=== PATIENT | female | born 1945 | race Caucasian/White ===

== ENCOUNTER → 2017-05-28 | Outpatient (CLI) | payer MEDICARE, OTHER ==
[2014-11-05 10:18] VITALS: BMI 28.0
[~2017-05-28] MED LIST: ASPI81TA94 PO; CHLOR25 PO; CIPR-214 PO; CLOP75TA43 PO; DOCU-202 PO; ENO100I SC; ESZO2TAB30 PO; HYDR12.556 PO; KRIL500C2 PO; LACT1CAP9 PO; LEV112 PO; LEVO500T83 PO; LOSA100T67 PO; METO25TA93 PO; METR-160 PO; METXR500 PO; MULT-885 PO; NIT4 SL; OMEG100032 PO; PANT20TA27 PO; PER PO; POTA-53 PO; POTA20TA94 PO; ROS10 PO; ROSU5TAB8 PO; TEMA-55 PO; TRAM-420 PO; TURM500C7 PO; UBID30CA27 PO; VALS-25 PO; WAR5 PO
[2017-05-28 12:13] LABS: PLATELET COUNT, AUTOMATED 212 K/uL (150-450)
--- NOTE | 2017-05-28 14:57 | RADIOLOGY IMAGING REPORT ---
FACILITY: [facility] PATIENT NAME: Ban Dubois : 1945 MR: [id number] V: [id number] EXAM DATE: ORDERING PHYSICIAN: DAYTON ORTEGA TECHNOLOGIST: Location: [facility] Patient: Ban Dubois : 1945 Visit/Account:[id number] Date of Sevice: 05/28/2017 ABDOMEN/PELVIS WITH CONTRAST HISTORY: diarrhea, abd pain,bloating x1.5months TECHNIQUE: Following administration of IV contrast contiguous axial images acquired through the abdom en/pelvis. Coronal and sagittal reformatting also performed. Dose Lowering Technique One of the following dose optimization techniques was utilized in the performance of this exam: Autom ated exposure control; adjustment of the mA and/or kV according to the patient's size; or use of an i terative reconstruction technique. Specific details can be referenced in the facility's radiology C T exam operational policy. CONTRAST: 75 mL Isovue-370 COMPARISON: December 19, 2014 FINDINGS: Visualized lung bases: Minimal linear scarring in the lung bases Hepatobiliary: Postsurgical changes from a cholecystectomy. Spleen: Negative. 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 Kidneys ureters or bladder: Tiny cortical hypodensities in both kidneys likely cysts although too sma ll to characterize by CT Genitalia: Pelvic contents are not ideally evaluated due to numerous artifacts from the patient's le ft hip arthroplasty. There appear to be several small calcified uterine fibroids GI: There is focal narrowing in the ascending colon best seen on axial image 80 of series 2 and ju nal image 49 of series series 3 could represent spasm versus an annular lesion. The cecum is now loc ated in the upper abdomen approaching midline. On the prior CT the cecum was in the right side of th e pelvis suggesting a mobile cecum. There is diverticulosis of the sigmoid colon. There appears to be wall thickening seen throughout th e distal sigmoid colon suggesting possible acute diverticulitis. There is a large diverticulum projecting from the third portion of the duodenum Vessels/spaces/nodes: There are at least moderate vascular calcifications throughout the abdomen and pelvis. Bones/soft tissues: There Is a left hip arthroplasty. There are spondylotic changes of the lower lum bar spine similar to the prior examination Additional findings: None pertinent. IMPRESSION: The cecum is now located in the upper abdomen approaching midline as opposed to the prior CT where th e cecum was in the right-sided the pelvis. This finding suggests some mobile cecum There is extensive diverticulosis in the sigmoid colon and wall thickening seen throughout the distal sigmoid colon suggesting possible acute diverticulitis. Clinical follow-up needed There is a focal narrowing in the descending colon as described above which could represent spasm christina raj an annular lesion Additional chronic findings as described above Report Dictated By: Andreia Campoverde MD at 05/28/2017 2:39 PM Report E-Signed By: Andreia Campoverde MD at 05/28/2017 2:52 PM WSN:[email or web address]
== END ==
LOC: LAB 11:44
PROVIDERS: ATTEND Nurse Practitioner Family
DX: K57.32 Diverticulitis of large intestine without perforation or abscess without bleeding (principal); Z96.642 Presence of left artificial hip joint; I25.799 Atherosclerosis of other coronary artery bypass graft(s) with unspecified angina pectoris; M47.896 Other spondylosis, lumbar region; D25.9 Leiomyoma of uterus, unspecified; R91.8 Other nonspecific abnormal finding of lung field; Z90.49 Acquired absence of other specified parts of digestive tract
CPT/HCPCS: 36415; 74177; 81001; 83630; 85025; 87045; 87177; 87324; 87449; G0328; 82040; 82247; 82274; 82310; 82374; 82435; 82565; 82947; 84075; 84132; 84155; 84295; 84450; 84460; 84520

== ENCOUNTER → 2017-06-18 | Outpatient (CLI) | payer MEDICARE, OTHER ==
[2014-11-05 10:18] VITALS: BMI 28.0
[~2017-06-18] MED LIST changes: +AMOX1TAB9 PO; +BARIUM SULFATE 148 GM POWDER ONE; +BARIUM SULFATE 176 GM BTL PO ONE; +BARIUM SULFATE 340 GM POWD ONE
--- NOTE | 2017-06-18 13:34 | RADIOLOGY IMAGING REPORT ---
FACILITY: [facility] PATIENT NAME: Ban Dubois : 1945 MR: [id number] V: [id number] EXAM DATE: ORDERING PHYSICIAN: ADRY BENEDICT TECHNOLOGIST: Location: [facility] Patient: Ban Dubois : 1945 Visit/Account:[id number] Date of Sevice: 06/18/2017 Exam type: ESOPHAGRAM History: Dysphasia and reflux Comparison: None. Findings: Double contrast esophagram was performed with thick and thin barium. A mild impression along the pos terior wall of the upper cervical esophagus immediately adjacent to anterior osteophytes at C4-5. Th ere is a small hiatal hernia present with no significant narrowing. No mucosal erosions identified. A 12 mm barium tablet passed freely into the stomach. There was a moderate to large amount of gastr oesophageal reflux observed. The fluoroscopy dose area product was 160.06 micro-Hobson per meter squar ed IMPRESSION: 1. Mild impression along the posterior wall of the upper cervical esophagus immediately adjacent to anterior osteophytes at C4-5 Small hiatal hernia with a moderate to large amount of gastroesophageal reflux although no significan t narrowing or mucosal erosion identified within the esophagus Report Dictated By: Andreia Campoverde MD at 06/18/2017 1:27 PM Report E-Signed By: Andreia Campoverde MD at 06/18/2017 1:30 PM WSN:[email or web address]
== END ==
LOC: RAD 03:46
PROVIDERS: ATTEND Surgery
DX: K44.9 Diaphragmatic hernia without obstruction or gangrene (principal); K21.9 Gastro-esophageal reflux disease without esophagitis
CPT/HCPCS: 74220

== ENCOUNTER → 2017-07-13 | Outpatient (CLI) | payer MEDICARE, OTHER ==
[2014-11-05 10:18] VITALS: BMI 28.0
[~2017-07-13] MED LIST changes: -BARIUM SULFATE 148 GM POWDER ONE; -BARIUM SULFATE 176 GM BTL PO ONE; -BARIUM SULFATE 340 GM POWD ONE; +LACT1CAP6 PO; +UBID100C48 PO; +UBID50TA3 PO
--- NOTE | 2017-07-13 17:58 | RADIOLOGY IMAGING REPORT ---
FACILITY: [facility] PATIENT NAME: NIKHIL MORGAN : [id number] MR: [id number] V: [id number] EXAM DATE: ORDERING PHYSICIAN: EUNICE CERRATO TECHNOLOGIST: Nancy Barron PROCEDURE: STRESS ECHOCARDIOGRAPHY COMPARISON: None. INDICATIONS: History of coronary artery disease/SOB FINDINGS: After informed consent the patient was exercised using the Alex protocol. She was able to complete the end of Stage 2 of the Alex protocol at which time she achieved 93% of the predicted maximum heart rate & 7.0 Mets. She had elevated blood pressure response as appropriate. No complaints of any chest pains or chest pressures. Some mild shortness of breath but her oxygen saturations remained in the [address] segment changes were noted. Post exercise the patient did have multiple premature ventricular contractions, all singlets & probably are unifocal. After several minutes these PVC's went away. There were no PVC's during exercise. She did have occasional premature atrial contraction post exercise as well. ECHOCARDIOGRAPHIC PORTION OF THE STRESS TEST: At rest the patient had normal left ventricular ejection fraction of 53% with a mild Grade 1/4 decrease in diastolic function. There was a mild amount of mitral, tricuspid, aortic & pulmonic insufficiency with normal right ventricular systolic pressures. With exercise there was normal hyperdynamic response to exercise with no left ventricular segmental wall motion abnormalities. CONCLUSION: 1. Normal stress echocardiograph with normal LV function at rest with hyperdynamic response to exercise & low probability of ischemia. 2. Ejection fraction of approximately 53% with a Grade 1 decrease in diastolic function. 3. Mild mitral annular calcifications & a mildly sclerotic but not stenotic aortic valve. 4. There is a mild amount of mild, tricuspid, aortic & pulmonic insufficiency with normal right ventricular systolic pressures. 5. Occasional premature ventricular & atrial contraction post exercise without symptoms. Dictated by: Hemalatha Coulter M.D. on 07/13/2017 at 10:13 Transcribed by: ARTHUR on 07/13/2017 at 13:54 Approved by: Hemalatha Coulter M.D. on 07/13/2017 at 17:56 [facility]
== END ==
LOC: RAD 00:31
PROVIDERS: ATTEND Internal Medicine Cardiovascular Disease
DX: I36.1 Nonrheumatic tricuspid (valve) insufficiency (principal); I35.1 Nonrheumatic aortic (valve) insufficiency; I37.1 Nonrheumatic pulmonary valve insufficiency
CPT/HCPCS: 93017; 93325; 93350

== ENCOUNTER 2017-07-21 01:07 | Day surgery (SDC) | payer MEDICARE, OTHER ==
[2014-11-05 10:18] VITALS: Ht 162.6 cm; Wt 74.4 kg
[~2017-07-21] VITALS: Ht 162.6 cm; Wt 74.4 kg
[~2017-07-21 01:07] MED LIST changes: +GOLYTE PO
[2017-07-21] MEDS ORDERED: PROPOFOL EMUL(*) 10MG/ML 20 ML 40 ML ONE (06:53)
[2017-07-21 09:08] VITALS: BP 137/76
[2017-07-21] MEDS ORDERED: LIDOCAINE/SOD BICARB 8.4% SYR ID ONE (09:30)
[2017-07-21] MEDS ORDERED: NORMOSOL R SOLN(*) 1000 ML BAG 1,000 ML IV PRN (09:30)
[2017-07-21] MEDS ORDERED: SUCCINYLCHOL CHL 200MG/10ML VL ONE (11:30)
[2017-07-21] MEDS ORDERED: PROPOFOL EMUL(*) 10MG/ML 20 ML 20 ML ONE ×2 (11:39→12:05)
[2017-07-21 12:19] VITALS: BP 141/79
--- NOTE | 2017-07-21 12:23 | Short(Outpt) Discharge Summary ---
Discharge Summary Reason for Hosp/Final Diag: (1) Sigmoid diverticulitis Status: Chronic Hospital Course & Plan: EGD with dilation and colonoscopy with polypectomy x3 completed without problems. (2) Lesion of colon Status: Chronic (3) Dysphagia Status: Chronic Departure Discharge to: Home, Self Care Discharge Instructions Home Meds Active Scripts Peg/Electrolytes (GOLYTELY SOLUTION) 4,000 Ml Soln, 4000 ML PO ONCE, #1 GAL 0 Refills Prov:ADRY BENEDICT MD 07/19/17 Reported Medications Lactobacillus Combination No.4 (PROBIOTIC) 1 Each Capsule, 1 EACH PO DAILY, CAPSULE 07/14/17 Aspirin (ASPIRIN) 81 Mg Tab.chew, 81 MG PO QDAY, TAB.CHEW 07/14/17 Ubidecarenone (COQ-10) 100 Mg Capsule, 500 MG PO DAILY, CAPSULE 07/14/17 Metformin Hcl (METFORMIN HCL ER) 500 Mg Tabcr, 1 TAB PO BID 05/28/17 Potassium Chloride (POTASSIUM CHLORIDE) 10 Meq Tab.er.prt, 1 TAB PO QDAY 05/28/17 Chlorthalidone (CHLORTHALIDONE) 25 Mg Tab, 1 TAB PO QDAY, TAB 05/28/17 Rosuvastatin Calcium (CRESTOR) 5 Mg Tablet, 1 TAB PO QDAY 05/28/17 Losartan Potassium (LOSARTAN POTASSIUM) 100 Mg Tablet, 100 MG PO QDAY 10/26/16 Multivitamin (DAILY VITAMIN) 1 Each Tablet, 1 EACH PO 3XW 10/23/14 Temazepam (TEMAZEPAM) 30 Mg Capsule, 30 MG PO PRN Y for SLEEP, CAPSULE 10/23/14 Nitroglycerin (NITROSTAT) 0.4 Mg Subl, 1 TAB SL Q5MIN Y for chest pain 10/23/14 Levothyroxine Sodium (Synthroid) 0.112 Mg Tab, 1 TAB PO QDAY 02/01/07 Discontinued Scripts Amoxicillin/Potassium Clav (AMOX TR-K CLV 875-125 MG TAB) 1 Each Tablet, 1 TAB PO Q12H, #30 TAB 0 Refills Prov:ADRY BENEDICT MD 06/01/17 Metronidazole (METRONIDAZOLE) 500 Mg Tablet, 500 MG PO TID for 10 Days, #30 TAB 0 Refills Prov:DAYTON ORTEGA AIR TABLE OPERATOR-BC 05/28/17 Diet: Regular Activity: As Tolerated Special Instructions: Your upper endoscopy and colonoscopy were completed without problems. I dilated your esophagus and removed 3 polyps from your colon. The polyps were sent to pathology to be evaluated. I didn't find any active inflammation or cancer in your colon. Yana, my clinic nurse, will call you in the next couple of days to schedule a follow up appointment with you to discuss results and see how your symptoms are. Problem Qualifiers (1) Dysphagia: Dysphagia type: esophageal phase Qualified Codes: R13.10 - Dysphagia, unspecified ADRY BENEDICT MD July 21, 2017 12:23
[2017-07-21 12:29] VITALS: BP 109/69
[2017-07-21 13:00] VITALS: BP 127/61
[2017-07-21 13:01] VITALS: BP 140/80
== END 2017-07-21 13:20 | disposition home or self-care (01) ==
LOC: OR 01:07
PROVIDERS: ATTEND Surgery
DX: D12.2 Benign neoplasm of ascending colon (principal); D12.3 Benign neoplasm of transverse colon; K57.30 Diverticulosis of large intestine without perforation or abscess without bleeding; E11.9 Type 2 diabetes mellitus without complications
CPT/HCPCS: 00811; 36416; 43239; 43248; 45380; 45385; 82948; 88305; C1769; J0330; J2704

== ENCOUNTER 2018-06-06 08:51 | Emergency (ER) | payer MEDICARE, OTHER ==
[2014-11-05 10:18] VITALS: Wt 74.8 kg
--- NOTE | 2018-06-06 09:58 | ER Report ---
History and Physical Time Seen By MD: 09:30 Hx. of Stated Complaint: patient was stretching when heard a pop and grinding sound from left hip. Had hip replacement in 2001. unable to bear weight on the left leg HPI/ROS CHIEF COMPLAINT: Left hip pain HISTORY OF PRESENT ILLNESS: Patient is a 72-year-old female who presents to the emergency department after sudden onset of left hip pain while exercising. Patient has a known left hip prosthesis that was placed in 2001 by orthopedics of the [facility]. She was informed years later by the maker of the prosthesis that it was defective. Today she states she was standing with her weight on her left leg she felt an heard a snap in her left hi p and was unable to bear weight and had immediate pain. He is unable to move at the hip joint. REVIEW OF SYSTEMS: Respiratory: No cough, no dyspnea. Cardiovascular: No chest pain, no palpitations. Gastrointestinal: No vomiting, no abdominal pain. Musculoskeletal: No back pain. Left hip pain Allergies: Coded Allergies: promethazine (Verified Allergy, Severe, neurological, siezures, 10/31/14) ciprofloxacin (Verified Allergy, Intermediate, 06/01/17) Headache and muscle aches Sulfa (Sulfonamide Antibiotics) (Verified Allergy, Mild, 10/31/14) adhesive (Unverified Adverse Reaction, Mild, skin irritation, 11/13/14) Home Meds Reported Medications Lactobacillus Combination No.4 (PROBIOTIC) 1 Each Capsule, 1 EACH PO DAILY, CAPSULE 07/14/17 Aspirin (ASPIRIN) 81 Mg Tab.chew, 81 MG PO QDAY, TAB.CHEW 07/14/17 Ubidecarenone (COQ-10) 100 Mg Capsule, 500 MG PO DAILY, CAPSULE 07/14/17 Metformin Hcl (METFORMIN HCL ER) 500 Mg Tabcr, 1 TAB PO BID 05/28/17 Potassium Chloride (POTASSIUM CHLORIDE) 10 Meq Tab.er.prt, 1 TAB PO QDAY 05/28/17 Chlorthalidone (CHLORTHALIDONE) 25 Mg Tab, 1 TAB PO QDAY, TAB 05/28/17 Rosuvastatin Calcium (CRESTOR) 5 Mg Tablet, 1 TAB PO QDAY 05/28/17 Losartan Potassium (LOSARTAN POTASSIUM) 100 Mg Tablet, 100 MG PO QDAY 10/26/16 Multivitamin (DAILY VITAMIN) 1 Each Tablet, 1 EACH PO 3XW 10/23/14 Temazepam (TEMAZEPAM) 30 Mg Capsule, 30 MG PO PRN PRN for SLEEP, CAPSULE 10/23/14 Nitroglycerin (NITROSTAT) 0.4 Mg Subl, 1 TAB SL Q5MIN PRN for chest pain 10/23/14 Levothyroxine Sodium (Synthroid) 0.112 Mg Tab, 1 TAB PO QDAY 02/01/07 Discontinued Scripts Ondansetron 4 Mg Odt (ONDANSETRON 4 MG ODT) 4 Mg Tab.rapdis, 4 MG PO Q6-8H PRN for NAUSEA, #20 TAB Prov:JEREMY BUNCH DO 03/06/18 Past Medical/Surgical History Past medical history for type II diabetes controlled with metformin, history of hyper cholesterolemia history of hypothyroidism history of angina, history of coronary artery bypass 3 in 2013 history of carotid endarterectomy. History of left total hip replacement 2001 Hx Smoking: No Smoking Status: Never Smoker Exposure to Second Hand Smoke?: Yes Hx Substance Use Disorder: No Hx Alcohol Use: No Constitutional Vital Sign - Last 24 Hours 06/06/18 06/06/18 06/06/18 06/06/18 08:51 08:57 08:58 09:11 Temp 98.4 Pulse 82 78 71 Resp 16 B/P (MAP) 170/89 170/89 (116) Pulse Ox 94 94 O2 Delivery Room Air 06/06/18 06/06/18 06/06/18 06/06/18 09:30 09:31 09:51 10:00 Pulse 82 74 B/P (MAP) 182/85 (117) 180/76 (110) Pulse Ox 93 93 06/06/18 06/06/18 06/06/18 06/06/18 10:11 10:30 10:31 10:42 Pulse 73 82 ??? B/P (MAP) 186/82 (116) Pulse Ox 95 06/06/18 06/06/18 06/06/18 06/06/18 11:00 11:02 11:22 11:30 Pulse 77 75 B/P (MAP) 151/72 (98) 149/77 (101) Pulse Ox 90 91 06/06/18 06/06/18 06/06/18 06/06/18 11:42 12:00 12:02 12:22 Pulse 74 73 72 B/P (MAP) 132/75 (94) Pulse Ox 93 93 94 06/06/18 12:30 B/P (MAP) 132/73 (92) Physical Exam General Appearance: The patient is alert, has no immediate need for airway protection and no current signs of toxicity. Eyes: Pupils equal and round no injection. Respiratory: Chest is non tender, lungs are clear to auscultation. Cardiac: regular rate and rhythm Gastrointestinal: Abdomen is soft and non tender, no masses, bowel sounds normal. Musculoskeletal: Neck: Neck is supple and non tender. Examination of the lower extremities reveals no obvious shortening or rotational deformity patient however is unable to lift the left thigh off the bed. She has pain with logroll to the left lower extremity. Pulses are intact sensation is intact to the foot Skin: No rashes or lesions. [ ] Medical Decision Making Data Points Result Diagram: 06/06/18 0000 06/06/18 0000 Laboratory Hematology Test 06/06/18 00:00 Red Blood Count 5.05 M/uL (4.17-5.56) Mean Corpuscular Volume 85.5 fL (80.0-96.0) Mean Corpuscular Hemoglobin 28.4 pg (26.0-33.0) Mean Corpuscular Hemoglobin Concent 33.2 g/dL (32.0-36.0) Red Cell Distribution Width 15.5 % (11.5-14.5) Mean Platelet Volume 9.2 fL (7.2-11.1) Neutrophils (%) (Auto) 81.4 % (39.4-72.5) Lymphocytes (%) (Auto) 10.1 % (17.6-49.6) Monocytes (%) (Auto) 7.3 % (4.1-12.4) Eosinophils (%) (Auto) 0.5 % (0.4-6.7) Basophils (%) (Auto) 0.7 % (0.3-1.4) Nucleated RBC Relative Count (auto) 0.1 /100WBC Neutrophils # (Auto) 7.8 K/uL (2.0-7.4) Lymphocytes # (Auto) 1.0 K/uL (1.3-3.6) Monocytes # (Auto) 0.7 K/uL (0.3-1.0) Eosinophils # (Auto) 0.0 K/uL (0.0-0.5) Basophils # (Auto) 0.1 K/uL (0.0-0.1) Nucleated RBC Absolute Count (auto) 0.01 K/uL Sodium Level 142 mmol/L (137-145) Potassium Level 3.4 mmol/L (3.5-5.0) Chloride Level 102 mmol/L (98-107) Carbon Dioxide Level 27 mmol/L (22-31) Blood Urea Nitrogen 18 mg/dl (7-18) Creatinine 0.90 mg/dl (0.52-1.04) Glomerular Filtration Rate Calc > 60.0 Random Glucose 125 mg/dl (75-110) Calcium Level 9.2 mg/dl (8.4-10.2) Total Bilirubin 0.7 mg/dl (0.2-1.3) Aspartate Amino Transf (AST/SGOT) 28 U/L (0-35) Alanine Aminotransferase (ALT/SGPT) 33 U/L (0-56) Alkaline Phosphatase 78 U/L (0-126) Total Protein 7.9 g/dl (6.3-8.2) Albumin 4.7 g/dl (3.5-5.0) Chemistry Test 06/06/18 00:00 White Blood Count 9.5 k/uL (4.5-11.0) Red Blood Count 5.05 M/uL (4.17-5.56) Hemoglobin 14.3 g/dL (12.0-16.0) Hematocrit 43.1 % (34.0-47.0) Mean Corpuscular Volume 85.5 fL (80.0-96.0) Mean Corpuscular Hemoglobin 28.4 pg (26.0-33.0) Mean Corpuscular Hemoglobin Concent 33.2 g/dL (32.0-36.0) Red Cell Distribution Width 15.5 % (11.5-14.5) Platelet Count 216 K/uL (150-450) Mean Platelet Volume 9.2 fL (7.2-11.1) Neutrophils (%) (Auto) 81.4 % (39.4-72.5) Lymphocytes (%) (Auto) 10.1 % (17.6-49.6) Monocytes (%) (Auto) 7.3 % (4.1-12.4) Eosinophils (%) (Auto) 0.5 % (0.4-6.7) Basophils (%) (Auto) 0.7 % (0.3-1.4) Nucleated RBC Relative Count (auto) 0.1 /100WBC Neutrophils # (Auto) 7.8 K/uL (2.0-7.4) Lymphocytes # (Auto) 1.0 K/uL (1.3-3.6) Monocytes # (Auto) 0.7 K/uL (0.3-1.0) Eosinophils # (Auto) 0.0 K/uL (0.0-0.5) Basophils # (Auto) 0.1 K/uL (0.0-0.1) Nucleated RBC Absolute Count (auto) 0.01 K/uL Glomerular Filtration Rate Calc > 60.0 Calcium Level 9.2 mg/dl (8.4-10.2) Total Bilirubin 0.7 mg/dl (0.2-1.3) Aspartate Amino Transf (AST/SGOT) 28 U/L (0-35) Alanine Aminotransferase (ALT/SGPT) 33 U/L (0-56) Alkaline Phosphatase 78 U/L (0-126) Total Protein 7.9 g/dl (6.3-8.2) Albumin 4.7 g/dl (3.5-5.0) EKG/Imaging EKG Interpretation EKG shows normal sinus rhythm with frequent PVCs, quadrigeminy Monitor Interpretation: Normal Sinus Rhythm ED Course/Re-evaluation ED Course I spoke with Dr. Da Schulz who is on for orthopedics today he personally reviewed the films on this patient and a described history and physical exam. After reviewed the films was the opinion of Dr. Schulz that this will require a joint replacement specialist and is out of the scope of practice for treatment here at [facility]. Patient actually 4 to go to [place] for repair we're attempting to contact orthopedics and [facility]. 06/06/2018 10:35:[address] Virk at [facility]; images were sent to the joint specialist and after review of the case it is of his opinion that this req uires a higher level care beyond that they can provide at [facility], they recommend referral to [facility]. 06/06/2018 10:49:[address] Gonzalez at [facility] history, history, physical exam pertinent lab data pertinent past medical history and case were reviewed she is accepted for direct admission to Dr. Gonzalez at [facility] we will try to push the images to [facility] and also create a disc of her images. Decision to Disposition Date: Jun 06, 2018 Decision to Disposition Time: 10:51 Depart Departure Latest Vital Signs Vital Signs Date Time Temp Pulse Resp B/P (MAP) Pulse Ox O2 Delivery O2 Flow Rate FiO2 06/06/18 12:30 132/73 (92) 06/06/18 12:22 72 94 06/06/18 08:57 98.4 16 Room Air Impression: Primary Impression: Prosthetic hip implant failure Condition: Condition Unchanged Disposition: XFER TO [facility]UTE [facility] (TO [facility] Dr Martinez) Referrals: DIMITRI HERNANDEZ (PCP) Problem Qualifiers Primary Impression: Prosthetic hip implant failure Encounter type: initial encounter Qualified Codes: T84.018A - Broken internal joint prosthesis, other site, initial encounter; Z96.649 - Presence of unspecified artificial hip joint LALIT SAPULDING MD Jun 06, 2018 09:58
--- NOTE | 2018-06-06 10:03 | RADIOLOGY IMAGING REPORT ---
FACILITY: [facility] PATIENT NAME: Ban Dubois : 1945 MR: [id number] V: [id number] EXAM DATE: ORDERING PHYSICIAN: LALIT SPAULDING TECHNOLOGIST: Location: [facility] Patient: Ban Dubois : 1945 Visit/Account:[id number] Date of Sevice: 06/06/2018 HIP LEFT Indication: Fall. Pain. Comparison: None available Findings: Frontal view of the pelvis which excludes the iliac crests and a crosstable lateral view are obtained of the left hip. A left total hip arthroplasty is in place. There is disruption of the femoral hea d component of the left total hip arthroplasty. A portion of the component remains aligned with the acetabulum. The superolateral portion is a broken and displaced superiorly. Surgical consultation i s necessary. No acute osseous fracture is seen. Pubic symphysis is appropriately aligned underlying degenerative change. There is moderate right hip joint osteoarthritis. IMPRESSION: 1. Hardware failure of a left total hip arthroplasty with disruption of the femoral head component. There is superior subluxation of the femoral head and stem component with respect to the acetabulum. 2. No evidence of acute fracture. 3. Moderate right hip joint osteoarthritis. Results were discussed with LALIT SPAULDING at 06/06/2018 9:57 AM. Report Dictated By: Nish Elizabeth at 06/06/2018 9:53 AM Report E-Signed By: Nish Elizabeth at 06/06/2018 9:58 AM WSN:[email or web address]
[2018-06-06] MEDS ORDERED: MORPHINE 4 MG/ML SDV IVP ONE ×2 (10:25→12:50)
--- NOTE | 2018-06-06 10:41 | EKG ---
FACILITY: [facility] PATIENT NAME: NIKHIL MORGAN : [id number] MR: [id number] V: [id number] EXAM DATE: ORDERING PHYSICIAN: LALIT SPAULDING TECHNOLOGIST: RAO Hammond Reason : ER Blood Pressure : / mmHG Vent. Rate : 076 BPM Atrial Rate : 076 BPM P-R Int : 170 ms QRS Dur : 102 ms QT Int : 466 ms P-R-T Axes : 060 041 100 degrees QTc Int : 524 ms Sinus rhythm with occasional premature ventricular complexes Septal infarct Incomplete left bundle branch block Prolonged QT Abnormal ECG When compared with ECG of 06-MAR-2018 15:21, premature ventricular complexes are now present Nonspecific T wave abnormality, worse in Lateral leads Confirmed by ADRY SWANN ([id number]) on 06/06/2018 7:23:49 PM Referred By: CHELLY Confirmed By:ADRY SWANN
[2018-06-06 10:44] LABS: PLATELET COUNT, AUTOMATED 216 K/uL (150-450)
--- NOTE | 2018-06-06 11:04 | RADIOLOGY IMAGING REPORT ---
FACILITY: [facility] PATIENT NAME: Ban Dubois : 1945 MR: [id number] V: [id number] EXAM DATE: ORDERING PHYSICIAN: LALIT SPAULDING TECHNOLOGIST: Location: [facility] [place] Patient: Ban Dubois : 1945 Visit/Account:[id number] Date of Sevice: 06/06/2018 2 VIEWS CHEST INDICATION: Chest pain. COMPARISON: 03/06/2018 FINDINGS: Linear atelectasis or scarring is unchanged in the left midlung. Lungs are otherwise clear and are w ell aerated. No effusion or pneumothorax is seen. Heart size is within normal limits. There has bee n previous median sternotomy and coronary artery bypass grafting. Atherosclerotic calcifications not ed within the aortic arch. IMPRESSION: 1. No radiographic evidence of active disease. 2. Atherosclerotic thoracic aorta. Report Dictated By: Nish Elizabeth at 06/06/2018 10:59 AM Report E-Signed By: Nish Elizabeth at 06/06/2018 11:01 AM WSN:[email or web address]
[2018-06-06] MEDS ORDERED: LORazepam 2 MG/ML VIAL IVP ONE (12:20)
[2018-06-06 12:30] VITALS: BP 132/73
== END 2018-06-06 13:00 | disposition short-term general hospital (02) ==
LOC: ER 09:11
DX: T84.018A Broken internal joint prosthesis, other site, initial encounter (principal); Z96.649 Presence of unspecified artificial hip joint; R94.31 Abnormal electrocardiogram [ECG] [EKG]
CPT/HCPCS: 71046; 73502; 85025; 93005; 96374; 96375; 96376; 99285; C1758; J2060; J2270; 82040; 82247; 82310; 82374; 82435; 82565; 82947; 84075; 84132; 84155; 84295; 84450; 84460; 84520

== ENCOUNTER → 2018-06-06 | Outpatient (CLI) | payer MEDICARE, OTHER ==
[2014-11-05 10:18] VITALS: BMI 28.0
[~2018-06-06] MED LIST changes: -LOSA100T67 PO; +LOSA100T75 PO; -METR-160 PO; +METR500T15 PO; +NITR-105 PO; +ONDA4TAB9 PO; -ROS10 PO; +ROSU10TA PO
== END ==
LOC: AMB 12:40
PROVIDERS: ATTEND Nurse Practitioner
DX: S72.052A Unspecified fracture of head of left femur, initial encounter for closed fracture (principal); W18.30XA Fall on same level, unspecified, initial encounter; Y93.79 Activity, other specified sports and athletics
CPT/HCPCS: A0425; A0428